=== PATIENT | male | born 1980 | race Caucasian/White ===

== ENCOUNTER 2016-05-06 21:09 | Emergency (ER) | payer OTHER ==
[2016-05-06 21:15] VITALS: RESP 18; TEMP 96.7
[2016-05-06] MEDS ORDERED: SODIUM CHLORIDE 0.9% 1,000 ML IV STA ×2 (21:51)
[2016-05-06 21:55] LABS: Glucose,Whole Blood 89 mg/dL (75-99)
--- NOTE | 2016-05-06 21:56 | ED ---
Chest Pain HPI - General Chief Complaint: Chest Pain Stated Complaint: chest pain Time Seen by Provider: 05/06/16 21:20 Source: patient, family, RN notes reviewed Mode of arrival: wheelchair Limitations: no limitations - History of Present Illness Initial Comments: This is a 35-year-old male with a history of diabetes sleep apnea and a reported history of cardiomyopathy secondary to the sleep apnea per his who apparently rolled off a couch about 1 hour prior to admission striking a carpeted floor and moving a coffee table in the process afterwards he complained of sharp burning left-sided chest pain that radiated to his left shoulder. He denies any head or neck pain denies any back pain loss of function to his upper or lower extremities he states he feels very weak he does state the pain gets worse if he does cough he states the pain makes him feel short of breath. Per his he apparently was involved in a some type of argument in his household prior to the events. He did not pass out. He denied any palpitations or other symptoms at this time. He is unable to quantify the severity of the brain pain. MD Complaint: chest pain, other - Related Data Home Medications Medication Instructions Recorded Confirmed Citalopram Hydrobromide [CeleXA] 40 mg PO HS 07/09/14 05/06/16 Cyclobenzaprine [Flexeril] 10 mg PO DAILY 07/09/14 05/06/16 Omeprazole [PriLOSEC] 40 mg PO HS 07/09/14 05/06/16 Atorvastatin Calcium [Lipitor] 20 mg PO HS 08/04/14 05/06/16 Lisinopril [Zestril] 2.5 mg PO HS 10/31/15 05/06/16 Metoprolol Tartrate [Lopressor] 25 mg PO BID 10/31/15 05/06/16 Spironolactone [Aldactone] 25 mg PO HS 10/31/15 05/06/16 Terbinafine [LamISIL] 250 mg PO HS 10/31/15 05/06/16 Furosemide [Lasix] 40 mg PO HS 11/07/15 05/06/16 Tamsulosin HCl [Flomax] 0.4 mg PO HS PRN 11/07/15 05/06/16 Sucralfate [Carafate] 1 gm PO BID 11/23/15 05/06/16 Aspirin 324 tab PO ONCE 11/24/15 05/06/16 Previous Rx's Medication Instructions Recorded Acetaminophen with Codeine 1 tab PO Q4H PRN #20 tab 11/07/15 [Tylenol w/codeine #3] Ondansetron [Zofran] 4 mg PO Q8HR PRN #30 tab 11/07/15 Cephalexin [Keflex] 500 mg PO Q6HR #40 cap 12/04/15 Cyclobenzaprine [Flexeril] 10 mg PO TID #14 tab 05/06/16 Ibuprofen [Motrin] 800 mg PO Q6HR PRN #20 tab 05/06/16 Allergies Allergy/AdvReac Type Severity Reaction Status Date / Time Penicillins Allergy Unknown Verified 12/04/15 21:13 Review of Systems ROS Statement: Those systems with pertinent positive or pertinent negative responses have been documented in the HPI. ROS Other: All systems not noted in ROS Statement are negative. EKG Findings - EKG Results: EKG: interpreted by CHRISTINE, sinus rhythm (Sinus rhythm with a rate 71. Interval 12 4 QRS duration 80 daily since QTC of 376/4 weight nonspecific T-wave configuration no acute ST elevation or depressions.) Past Medical History Past Medical History: Chest Pain / Angina, Heart Failure, GERD/Reflux, Hyperlipidemia, Hypertension, Osteoarthritis (OA), Skin Disorder, Sleep Apnea/ CPAP/BIPAP Additional Past Medical History / Comment(s): cardiomyopathy, uses a cpap, has psoriasis, herniated disc History of Any Multi-Drug Resistant Organisms: None Reported Past Surgical History: Appendectomy Additional Past Surgical History / Comment(s): scar tissue removed from interior stomach Past Anesthesia/Blood Transfusion Reactions: Postoperative Nausea & Vomiting ( PONV) Additional Past Anesthesia/Blood Transfusion Reaction / Comment(s): slow to wake up Past Psychological History: Anxiety, Depression Smoking Status: Former smoker Past Alcohol Use History: Occasional Additional Past Alcohol Use History / Comment(s): quit smoking 9 yrs. ago, smoked for 10 yrs. Past Drug Use History: Marijuana Additional Drug Use History / Comment(s): states it's medical marijuana, daily use - Past Family History Mother Family Medical History: No Reported History General Exam - General Exam Comments Initial Comments: This is a well-developed well-nourished awake alert oriented history male his [place] Coma Scale of 15 he does appear somewhat lethargic Limitations: no limitations General appearance: lethargic Head exam: Present: atraumatic, normocephalic, normal inspection Eye exam: Present: normal appearance, PERRL, EOMI. Absent: scleral icterus, conjunctival injection, periorbital swelling ENT exam: Present: normal exam, mucous membranes moist Neck exam: Present: normal inspection. Absent: tenderness, meningismus, lymphadenopathy Respiratory exam: Present: normal lung sounds bilaterally, chest wall tenderness (Is tenderness palpation along the costochondral costal sternal margin. No step-off or crepitation). Absent: respiratory distress, wheezes, rales, rhonchi, stridor Cardiovascular Exam: Present: regular rate, normal rhythm, normal heart sounds. Absent: systolic murmur, diastolic murmur, rubs, gallop, clicks GI/Abdominal exam: Present: soft, normal bowel sounds. Absent: distended, tenderness, guarding, rebound, rigid Extremities exam: Present: normal inspection, full ROM, tenderness (Some tenderness palpation over the left shoulder and deltoid muscle no definite crepitation or step-off no definite rotator cuff tenderness. No focal sensorimotor or vascular deficits), normal capillary refill. Absent: pedal edema, joint swelling, calf tenderness Back exam: Present: normal inspection Neurological exam: Present: alert, oriented X3, CN II-XII intact Psychiatric exam: Present: normal affect, normal mood Skin exam: Present: warm, dry, intact, normal color. Absent: rash Course Vital Signs 05/06/16 05/06/16 05/06/16 21:12 21:46 21:57 Temperature 96.7 F L Pulse Rate 66 74 71 Respiratory 18 18 18 Rate Blood Pressure 140/80 142/82 132/79 O2 Sat by Pulse 98 97 97 Oximetry 05/06/16 23:14 Temperature Pulse Rate 88 Respiratory 18 Rate Blood Pressure 136/63 O2 Sat by Pulse 98 Oximetry Chest Pain MDM - MDM X-rays are negative for acute findings I did review the labs and EKG and x-rays no acute findings. Route after the Toradol shot he still has some numbness to his left arm which seems to be reproducible with palpation. Patient will be discharged on appropriate medications he is follow-up with his doctor return when necessary the presentation is consistent with costochondritis Disposition Clinical Impression: Costalchondritis, Chest wall syndrome Disposition: HOME SELF-CARE Condition: Good Instructions: Costochondritis (ED) Prescriptions: Cyclobenzaprine [Flexeril] 10 mg PO TID #14 tab Ibuprofen [Motrin] 800 mg PO Q6HR PRN #20 tab PRN Reason: Pain
[2016-05-06] MEDS ORDERED: KETOROLAC 30 MG/ML 1 ML VIAL IVP STA ×2 (22:05→23:39)
[2016-05-06 22:09] LABS: Basophils # (A) 0.1 k/uL (0-0.2); Basophils % (A) 1 %; CH 29.5; CHCM 32.8; Eosinophils # (A) 0.9 k/uL (0-0.7); Eosinophils % (A) 8 %; HDW 2.49; HGB 15.5 gm/dL (13.0-17.5); Luc # (Auto) 0.12; Luc % (Auto) 1; Lymphocytes # (A) 2.3 k/uL (1.0-4.8); Lymphocytes % (A) 21 %; MCH 28.7 pg (25.0-35.0); MCHC 31.7 g/dL (31.0-37.0); MCV 90.5 fL (80.0-100.0); Mean Platelet Volume 8.5; Monocytes # (A) 0.7 k/uL (0-1.0); Monocytes % (A) 6 %; Neutrophils % (A) 64 %; RBC 5.42 m/uL (4.30-5.90); RDW 13.5 % (11.5-15.5)
[2016-05-06 22:21] LABS: ALT 68 U/L (21-72); AST 35 U/L (17-59); Alkaline Phosphatase 110 U/L (38-126); Anion Gap 15 mmol/L; Blood Urea Nitrogen 16 mg/dL (9-20); Calcium 10.1 mg/dL (8.4-10.2); Carbon Dioxide 25 mmol/L (22-30); Chloride 103 mmol/L (98-107); Glucose 98 mg/dL (74-99); INR 1.1 (<1.1); Magnesium 2.2 mg/dL (1.6-2.3); Non-African American GFR(MDRD) >60 (>60 ml/min/1.73 sqM); Prothrombin Time 10.8 sec (9.0-12.0); Sodium 143 mmol/L (137-145); Total Bilirubin 0.5 mg/dL (0.2-1.3); Total Protein 7.8 g/dL (6.3-8.2)
[2016-05-06 22:42] LABS: Creatine Kinase 73 U/L (55-170)
[2016-05-06 22:50] LABS: Potassium 4.1 mmol/L (3.5-5.1)
[2016-05-06 22:54] LABS: Creatine Kinase MB 0.4 ng/mL (0.0-2.4); Troponin I <0.012 ng/mL (0.000-0.034)
--- NOTE | 2016-05-06 23:01 | XR ---
EXAMINATION TYPE: XR chest 2V DATE OF EXAM: 05/06/2016 10:23 PM COMPARISON: 11/07/2015 HISTORY: Chest pain and arm pain TECHNIQUE: Frontal and lateral views of the chest are obtained. FINDINGS: Heart and mediastinum are normal. Lungs are clear. Diaphragm is normal. There are chest le ads. Bony thorax is intact. IMPRESSION: Normal chest. Heart appears smaller than old exam.
[2016-05-06] MEDS ORDERED: ORPHENADRINE 30 MG/ML 2 ML VIAL IVP STA (23:40)
[2016-05-06 23:51] VITALS: BP 105/56; PULSE 77
== END 2016-05-06 23:57 | disposition home or self-care (01) ==
LOC: EC 21:09
DX: M94.0 Chondrocostal junction syndrome [Tietze] (principal); M25.512 Pain in left shoulder; I10 Essential (primary) hypertension; E78.5 Hyperlipidemia, unspecified; K21.9 Gastro-esophageal reflux disease without esophagitis; I50.9 Heart failure, unspecified; M19.90 Unspecified osteoarthritis, unspecified site; F41.8 Other specified anxiety disorders; L40.9 Psoriasis, unspecified; Z86.79 Personal history of other diseases of the circulatory system; Z87.891 Personal history of nicotine dependence; Z79.82 Long term (current) use of aspirin; Z79.899 Other long term (current) drug therapy; Z88.0 Allergy status to penicillin
CPT/HCPCS: 36415; 93005; 80053; 84443; 82550; 82553; 83735; 84484; 85025; 85610; 85730; 71020; 99285; 96374; 96375; 96376; 96361 ×2; J2360; J1885